=== PATIENT | male | born 1940 | race Caucasian/White ===

== ENCOUNTER → 2020-01-01 12:58 | Outpatient (BNVA) | payer OTHER, MEDICARE, SELFPAY | PROVIDERS: Family Provider Internal Medicine; PCP Internal Medicine; Visit Provider Specialist | DX: G25.0 Essential tremor (principal); G24.3 Spasmodic torticollis; Z87.891 Personal history of nicotine dependence | CPT/HCPCS: 99213 ==

== ENCOUNTER 2020-01-17 15:38 | Outpatient (CLI) | payer MEDICARE, SELFPAY ==
--- NOTE | 2020-01-17 16:30 | USCV_ITS ---
Coy Monique Age: 79 Gender: M : 1940 Exam Date: 01/17/2020 16:17 Ordering Phys: Dakota Carbajal MD ([email or web address]) Technologist: Colleen Rivera [place]am [place] [facility] [place]: SOB COPD BP: / HR: 90 Rhythm: Sinus Technical Quality: Adequate MEASUREMENTS (Male / Female) Normal Values 2D ECHO LV Diastolic Diameter PLAX 3.8 cm 4.2 - 5.9 / 3.9 - 5.3 cm LV Systolic Diameter PLAX 2.7 cm LV Chamber Size 2.9 cm IVS Diastolic Thickness 0.9 cm 0.6 - 1.0 / 0.6 - 0.9 cm IVS Systolic Thickness 1.3 cm LVPW Diastolic Thickness 1.5 cm 0.6 - 1.0 / 0.6 - 0.9 cm LVPW Systolic Thickness 1.4 cm RV Chamber Size 3.3 cm LVOT Diameter 2.1 cm LV Ejection Fraction 2D Teich 54.6 % LV Ejection Fraction MOD 2C 34.6 % LV Ejection Fraction 2C AL 36.1 % LA Diameter 2.8 cm LA Width 2.8 cm LA Height 3.3 cm RA Width 4.0 cm RA Height 3.9 cm Aorta at Sinotubular Diameter 3.4 cm M-MODE LV Diastolic Diameter MM 4.8 cm 4.2 - 5.9 / 3.9 - 5.3 cm LV Systolic Diameter MM 2.9 cm LV Ejection Fraction MM Teich 70.0 % IVS Diastolic Thickness MM 1.3 cm 0.6 - 1.0 / 0.6 - 0.9 cm IVS Systolic Thickness MM 1.5 cm LVPW Diastolic Thickness MM 0.8 cm 0.6 - 1.0 / 0.6 - 0.9 cm LVPW Systolic Thickness MM 1.7 cm RV Diastolic Diameter MM 2.1 cm Aortic Annulus Diameter 3.7 cm LA Ao Ratio MM 0.8 MV E Point Septal Separation 0.3 cm DOPPLER AV Peak Velocity 94.0 cm/s LVOT Peak Velocity 68.0 cm/s AV Area Cont Eq vti 3.1 cm squared AV Area Cont Eq pk 2.4 cm squared MV Area PHT 5.5 cm squared Mitral E to A Ratio 0.9 MV E' Velocity 9.0 cm/s Mitral E to MV E' Ratio 7.4 Mitral E to LV E' Lateral Ratio 7.8 Mitral E to LV E' Septal Ratio 7.0 TR Peak Velocity 199.3 cm/s TR Peak Gradient 15.9 mmHg TR Mean Velocity 158.9 cm/s TR Mean Gradient 10.8 mmHg TR Velocity Time Integral 60.9 cm Right Atrial Pressure 15.0 mmHg Pulmonary Artery Systolic Pressu 30.9 mmHg PV Peak Velocity 54.0 cm/s RV Acceleration Time 0.1 s RV Ejection Time 0.3 s RV AcT/ET 0.4 FINDINGS Left Ventricle Normal left ventricular cavity size. Normal left ventricular systolic function. No regional wall motion abnormalities. Left ventricular ejection fraction is estimated at 55 %. Grade I/IV diastolic dysfunction (abnormal relaxation filling pattern), normal to mildly elevated filling pressures. Right Ventricle The right ventricle is normal in size and function. Right Atrium The right atrium is normal in size. Left Atrium The left atrium is normal in size. Mitral Valve Structurally normal mitral valve without significant stenosis or prolapse. There is no mitral regurgitation. Aortic Valve Moderate aortic valve calcification. No aortic valve stenosis. No aortic valve regurgitation. Tricuspid Valve Structurally normal tricuspid valve without significant stenosis or regurgitation. Pulmonary artery systolic pressure is normal. Pulmonic Valve Structurally normal pulmonic valve without significant stenosis. There is no pulmonic regurgitation. Pericardium Normal pericardium without effusion. Aorta Normal ascending aorta dimension. CONCLUSIONS 1-Normal left ventricular cavity size. Normal left ventricular systolic function. No regional wall motion abnormalities. Left ventricular ejection fraction is estimated at 55 %. Grade I/IV diastolic dysfunction (abnormal relaxation filling pattern), normal to mildly elevated filling pressures. 2-There is no pericardial effusion. 3-Pulmonary artery systolic pressure is within normal limits. 4-No significant valve abnormalities. 5-Right atrial pressure is around 5 mm of mercury. 6-No significant change since the prior echocardiogram study of 04/18/2018.. Dakota Carbajal MD (Electronically Signed) Final Date: 17 Jan 2020 18:51 S
== END 2020-01-17 15:39 | disposition home or self-care (01) ==
LOC: RAD 15:44
PROVIDERS: PCP Internal Medicine; Visit Provider Internal Medicine Cardiovascular Disease
DX: R06.02 Shortness of breath (principal); J44.9 Chronic obstructive pulmonary disease, unspecified
CPT/HCPCS: 93306

== ENCOUNTER → 2020-06-04 13:44 | Outpatient (BNVA) | payer MEDICARE, SELFPAY | PROVIDERS: PCP Internal Medicine; Visit Provider Specialist | DX: Z11.59 Encounter for screening for other viral diseases (principal) | CPT/HCPCS: 87635 ==

== ENCOUNTER 2020-06-09 12:06 | Observation (INO) | payer MEDICARE, SELFPAY ==
[2020-06-08 10:39] VITALS: BMI 28.6
[2020-06-09] VITALS (14 sets, daily range): BP systolic 131–146; BP diastolic 72–80; PULSE 81–103; RESP 16–32; TEMP 36.3–36.8; O2SAT 94–99
--- NOTE | 2020-06-09 07:41 | ECG_ITS ---
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 Measurements Intervals [place] Rate: 83 P: 66 [place]: 156 QRS: 65 QRSD: 86 T: 50 QT: 351 QTc: 414 Interpretive Statements SINUS RHYTHM No previous ECG available for comparison Electronically Signed On 06-09-2020 16:34:45 CDT by Jolene Friedman M.D. [id number]
[2020-06-09] MEDS: sodium chloride 0.9% 1,000 ML 30 ML IV (07:50)
--- NOTE | 2020-06-09 08:00 | ANES.PREANE2 ---
Pre-Anesthetic Assessment Pre-Anesthetic Assessment: Height/Weight: Height 1.7 m Weight 83.007 kg Temp Pulse Resp BP Pulse Ox 97.9 F 91 18 146/79 97 06/09/20 07:42 06/09/20 07:42 06/09/20 07:42 06/09/20 07:42 06/09/20 07:42 Preop Diagnosis: COPD Proposed Procedure: Operation Date: 06/09/20 09:05 Proposed Procedures p Transtracheal Catheter, Scoop placement(Not Applicable) - Bao Argueta MD s Tracheostomy(Not Applicable) - Bao Argueta MD Familial anesthetic complications: No hx of anesthesia Was Beta Laverne taken within 24 hours: N/A Last intake: Intake Last Liquid Date 06/09/20 Last Liquid Time 04:30 Last Solid Date 06/08/20 Last Solid Time 23:00 Social: Social History: No alcohol and No tobacco Comment: former smoker Exam: Pre-Anes Outpt Exam: alert, oriented x 3, clear to auscultation bilaterally and regular rate & rhythm Airway: Cervical ROM: WNL MP: 3 Dentition: Other (missing) Pulmonary: Pulmonary: COPD CV/HEM: CV/HEM: CHF (taking lasix) and HTN Metabolic: Metabolic: Hyperlipidemia and Thyroid Neuropsych: Comments: tremor Anesthetic Plan: ASA status: 4 Anesthesia: MAC Risk of > 500 ml blood loss (7ml/kg in children): No Meds/Allergies Current Medications: Current Medications Generic Name Dose Route Start Last Admin Trade Name Freq PRN Reason Stop Dose Admin Sodium Chloride 1,000 mls @ 30 ml s/hr 06/09/20 07:15 06/09/20 07:50 Sodium Chloride 0.9% IV 06/10/20 07:14 30 mls/hr .Q24H GONZALEZ Administration PFSH Anesthesia PFSH: Medical History Lower extremity edema Shortness of breath Sinus tachycardia Family History Father Cancer Colon to lungs Social History Smoking and tobacco status: former smoker Data Anesthesia Cardiac Studies: No Data to Display
[2020-06-09 08:28] LABS: Basophils % 0.4 %; Eosinophils % 0.4 %; Hematocrit 49.6 % (42.0-52.0); Hemoglobin 14.7 g/dL (11.7-16.6); Lymphocytes # 1.3 10^3/uL (0.8-4.8); Lymphocytes % 13.2 %; Mean Corpuscular HGB Conc 29.6 g/dL (30.0-36.0); Mean Corpuscular Hemoglobin 28.9 pg (28.0-34.0); Mean Corpuscular Volume 97.6 fL (80-94); Mean Platelet Volume 11.1 fL (7.4-10.4); Monocytes # 0.8 10^3/uL (0.2-0.9); Monocytes % 7.5 %; Neutrophils # 7.75 10^3/uL (1.8-7.7); Nucleated Red Blood Cells % 0 %; Platelet Count 194 10^3/cmm (130-400); Red Blood Count 5.08 10^6/uL (4.1-5.3); Red Cell Distribution Width 13.8 % (12.1-15.1); White Blood Count 9.9 10^3/uL (4.0-10.0)
[2020-06-09 10:51] LABS: Alanine Aminotransferase 26 U/L (0-41); Albumin Level 4.3 g/dL (3.5-5.2); Alkaline Phosphatase 65 IU/L (40-130); Anion Gap 12.9 (5-19); Aspartate Amino Transferase 26 U/L (0-40); Blood Urea Nitrogen 18 mg/dL (8-23); Calcium 9.7 mg/dL (8.5-10.5); Carbon Dioxide 33 mmol/L (22-29); Chloride 101 mmol/L (98-107); Glucose 99 mg/dL (65-115); Osmolality Calculated 298 mOsm/kg (285-295); Potassium 3.9 mmol/L (3.5-5.1); Sodium 143 mmol/L (136-145); Total Bilirubin 0.4 mg/dL (0.15-1.2); Total Protein 7.3 g/dL (6.6-8.7)
--- NOTE | 2020-06-09 10:58 | W.PM.OPSUD ---
Surgery/Procedure H&P Update DATE OF PROCEDURE: June 09, 2020 DATE H&P PERFORMED: 05/25/20 H&P UPDATE INFORMATION: I have reviewed H&P completed within last 30 days, I have examined patient prior to procedure and No changes to prior documentation PREOP DIAGNOSIS: COPD with hypoxemia PLANNED PROCEDURE: Operation Date: 06/09/20 09:05 Proposed Procedures p Transtracheal Catheter, Scoop placement(Not Applicable) - Bao Argueta MD s Tracheostomy(Not Applicable) - Bao Argueta MD
--- NOTE | 2020-06-09 11:47 | XRR_ITS ---
PROCEDURE INFORMATION: Exam: XR Chest, 1 View Exam date and time: 06/09/2020 12:04 PM Age: 79 years old Clinical indication: Device placement; Tracheostomy placement or adjustment; Prior surgery; Surgery date: Post-operative (0-2 days); Surgery type: Tracheotomy with transtracheal oxygen catheter placement; Additional info: Post-op TECHNIQUE: Imaging protocol: XR of the chest Views: 1 view. COMPARISON: No relevant prior studies available. FINDINGS: Tubes, catheters and devices: A tracheostomy tube projects in satisfactory position. Lungs: There is mild fibrosis in the lungs but there is no airspace consolidation. Pleural space: Unremarkable. No pleural effusion. No pneumothorax. Heart/Mediastinum: The heart is not enlarged. The thoracic aorta is tortuous. Bones/joints: There are multiple old healed right rib fractures. XR/XR chest 1V portable [id number] IMPRESSION: 1. Satisfactory tracheostomy tube position. 2. No acute chest abnormality.
--- NOTE | 2020-06-09 11:53 | PM.OP ---
Operative Report Date of procedure: June 09, 2020 Pre-op Diagnosis: COPD with hypoxemia Post-op diagnosis: same Post-op Findings: Normal anterior neck exam Procedure Done: Tracheotomy with transtracheal oxygen catheter placement Implants: None Specimens removed/disposition: None Pathology: none sent Surgeon: Bao Argueta Hot Metal Mixer Operator Helper: Walt Bryant Anesthesia: MAC Estimated blood loss (mL): 10 IV fluids (mL): 800 Complications: None Findings: Normal anterior neck exam Condition: stable Disposition: PACU Brief History: 79 yo wm with a h/o COPD with hypoxemia who desires tracheotomy with transtracheal oxygen catheter placement. Procedure: The patient was identified the preoperative holding area and was taken to the operating where he was placed on the operating table in the supine position. The anatomical landmarks of the trachea were marked out on the anterior neck as was the incision, and the area of the incision was injected with local anesthesia. The patient was then prepped and draped in the usual sterile fashion, and the incision was made with electrocautery on cut mode. At this point electrocautery was used to perform a subcutaneous lipectomy and the strap muscles were identified. The strap muscles were then divided in the avascular midline off of the trachea and the trachea was exposed. At this point 2 cc of 2% plain lidocaine was injected into the trachea itself, and a horizontal incision was made between the first and second tracheal rings. The tracheal punch was used to remove a circular piece of cartilage from the anterior second tracheal ring. At this point the tracheal stent was placed into the trachea and was secured in place with a neck strap and 0 Prolene sutures. At this point the procedure was terminated and control of the patient was returned to anesthesia where he underwent an uneventful reversal of sedation was taken to the recovery room in stable condition. There were no operative or anesthetic complications.
--- NOTE | 2020-06-09 11:55 | SUR.PHASEI ---
1151 PATIENT TO PACU FROM OR. RR EVEN AND UNLABORED. TRACH IN PLACE, SPO2 99% ON SIMPLE MASK AT 8L. PATIENT DENIES PAIN.
[2020-06-09] MEDS: lidocaine 2% INJ 20 mL INJECTION (11:56)
--- NOTE | 2020-06-09 11:56 | SUR.PHASEI ---
1156 RECOVERING PATIENT AT A LEVEL 2 DUE TO AIRWAY CONCERNS FROM TRACH PLACEMENT.
--- NOTE | 2020-06-09 12:20 | PM.PACU ---
PACU note Post-Anesthesia Exam: awake and vital signs stable Disposition: admitted
--- NOTE | 2020-06-09 12:52 | SUR.PHASEI ---
1223 PATIENT TO MED SURG. DENIES PAIN. TOLERATING ICE CHIPS. PATIENT AMBULATORY FROM [facility] TO BED WHEN ARRIVING TO MED SURG.
[2020-06-09] MEDS: levalbuterol 0.63 mg/3 mL Neb INHALATION ×2 (13:53→20:28)
[2020-06-09] MEDS: HYDROcodone-acetaminophen 5-325 mg Tablet 2 TAB PO (15:56)
[2020-06-09] MEDS: CLONazepam 0.5 mg Tablet PO ×2 (15:57→21:11)
[2020-06-09] MEDS: gabapentin 300 mg Capsule PO ×2 (15:57→21:11)
[2020-06-09] MEDS: famotidine 20 mg/2 mL INJ IVP (17:08)
[2020-06-09] MEDS: lactated ringers 1,000 ML 100 ML IV (17:08)
[2020-06-09] MEDS: doxycycline 100 mg Tablet PO (17:08)
--- NOTE | 2020-06-09 17:36 | P.PN_ITS ---
Subjective Subjective: Interval history: 79 yo wm who is night of surgery s/p Minitracheotomy/Transtracheal oxygen catheter placement who reports that he is doing well. He is eating well, and has no other c/o. He reports mild pain in the area as well as mild bloody discharge, but has had no other c/o. Vitals/I&O/Wt Last Vital Signs Temp 98.2 F 06/09/20 15:34 Pulse 88 06/09/20 15:34 Resp 18 06/09/20 15:34 BP 131/72 06/09/20 15:34 Pulse Ox 94 06/09/20 16:18 06/09/20 06/09/20 06/09/20 06:59 14:59 22:59 Intake Total 50 / 50 Output Total Balance 40 / 40 Weight last 48 hrs Weight 83.007 kg Weight 83.007 kg Physical Exam HENMT: COMMON NORMALS: normocephalic, hearing grossly normal bilaterally, ext ernal ears normal and Normal external nose present HEAD & SCALP: normocep halic FACE & SINUS: normal facial exam NOSE: Normal external nose present EXTERNAL EAR: Yes external ears normal Eye: COMMON NORMALS: conjunctivae normal GENERAL EYE: appearance normal, both eyes and all related structures CONJUNCTIVA: Yes conjunctivae normal Neck/C-Spine: COMMON NORMALS: full ROM, no lymphadenopathy and supple GENERAL: Yes normal visual inspection OTHER: The trach site is clean and without erythema or induration. There is a scant bloody discharge present, but no active bleeding. Data : 06/09/20 07:49 06/09/20 07:49 A&P Additional A&P Information Impression: 79 yo wm who is night of surgery s/p minitrachetomy with transtracheal oxygen catheter placement doing well from this standpoint Plan: The patient is to continue NC Oxygen tonight. I will change to the 11cm SCOOP catheter in the morning. The patient will be ready for d/c after the oxygen catheter change in the morning. O/W, the patient is to continue his current care as outlined in his transfer orders. Attestations Medical Necessity Statement*: The patient requires overnight observation of his airway. Coding Level of Care Code Acute Round Boner for Yossi Perez
[2020-06-09] MEDS: ipratropium 0.5 mg/2.5 mL Neb INHALATION (20:28)
[2020-06-10 01:17] VITALS: BP 135/73; PULSE 87; RESP 17; TEMP 36.4; O2SAT 96
[2020-06-10] MEDS: lactated ringers 1,000 ML 100 ML IV (03:22)
[2020-06-10] MEDS: famotidine 20 mg/2 mL INJ IVP (03:23)
--- NOTE | 2020-06-10 05:03 | PM.PN ---
Subjective Subjective: Interval history: 79 yo wm who is POD #1 s/p minitracheotomy/transtracheal oxygen catheter placement. The patient reports that he is doing well. He denies any significant pain, and is o/w without c/o. He is using his NC 02. Vitals/I&O/Wt Last Vital Signs Temp 97.6 F 06/10/20 01:17 Pulse 87 06/10/20 01:17 Resp 17 06/10/20 01:17 BP 135/73 06/10/20 01:17 Pulse Ox 96 06/10/20 01:17 06/09/20 06/09/20 06/10/20 14:59 22:59 06:59 Intake Total 50 / 50 240 / 290 1000 / 1290 Output Total Balance 40 / 40 240 / 280 1000 / 1280 Weight last 48 hrs Weight 83.007 kg Weight 83.007 kg Physical Exam Const: COMMON NORMALS: no acute distress and patient oriented x3 GENERAL APPEARANCE: cooperative ORIENTATION/CONSCIOUSNESS: Yes awake HENMT: COMMON NORMALS: normocephalic, hearing grossly normal bilaterally and Normal external nose present HEAD & SCALP: normocephalic NOSE: Normal external nose present Eye: COMMON NORMALS: EOMs intact bilaterally and conjunctivae normal GENERAL EYE: appearance normal, both eyes and all related structures CONJUNCTIVA: Yes conjunctivae normal Neck/C-Spine: GENERAL: Yes normal visual inspection, Yes trachea midline and Yes other (The trach site is well healed without erythema. There is a scan bloody d/c) Chest: COMMONS NORMALS: normal inspection of the chest Resp: COMMON NORMALS: normal respiratory effort Cardio: COMMON NORMALS: regular rate, regular rhythm and No murmurs present (Cardio) RATE: regular rate RHYTHM: regular rhythm GI: COMMON NORMALS: Normal to inspection, nondistended, normoactive bowel sounds present Extremity: COMMON NORMALS: normal to inspection Neuro: COMMON NORMALS: patient oriented x3 and CN's II-XII intact bilaterally Skin: COMMON NORMALS: no rashes or lesions noted GENERAL SKIN EXAM: no rashes or lesions noted Data : 06/09/20 07:49 06/09/20 07:49 A&P Additional A&P Information Impression: 79 yo wm who is POD #1 s/p minitracheotomy/transtracheal oxygen catheter placement doing well Plan: The tracheal stent was removed and was replaced with an 11cm transtracheal oxygen catheter; the patient was placed on 2liters/minute oxygen via the TTO catheter with 93% saturation by pulse oximetry; we will obtain a PA/LAT CXR this morning to confirm placement of the catheter; once this has been done, the patient will be discharged to home; he was instructed and will be given instruction materials on TTO catheter care. Attestations Medical Necessity Statement*: The patient required overnight observation of his airway Coding Level of Care Code Acute [employer] for Yossi Perez
[2020-06-10 05:04] VITALS: BP 120/72; PULSE 77; RESP 16; TEMP 36.6; O2SAT 95
--- NOTE | 2020-06-10 05:11 | XRR_ITS ---
PROCEDURE INFORMATION: Exam: XR Chest, 2 Views Exam date and time: 06/10/2020 5:50 AM Age: 79 years old Clinical indication: Device placement; Other: For transtracheal oxygen catheter placement TECHNIQUE: Imaging protocol: XR of the chest Views: 2 views. COMPARISON: CR XR chest 1V portable [id number] 06/09/2020 12:03 PM FINDINGS: Tubes, catheters and devices: A tracheostomy tube is again seen and projects in satisfactory position. Lungs: The lungs are overinflated consistent with COPD. Scattered pulmonary fibrosis is present and stable. No pneumonia is seen. Pleural space: Unremarkable. No pleural effusion. No pneumothorax. Heart/Mediastinum: The heart is not enlarged. There is tortuosity and calcification of the thoracic aorta. Bones/joints: Unremarkable. XR/XR chest 2V* [id number] IMPRESSION: 1. COPD with scattered pulmonary fibrosis. 2. No acute abnormalities are seen.
[2020-06-10] MEDS: CLONazepam 0.5 mg Tablet PO (06:18)
[2020-06-10 06:57] LABS: Blood Urea Nitrogen 15 mg/dL (8-23)
[2020-06-10] MEDS: levothyroxine 50 mcg Tablet PO (08:06)
[2020-06-10] MEDS: roflumilast 500 mcg Tablet 250 MCG PO (08:06)
[2020-06-10] MEDS: doxycycline 100 mg Tablet PO (08:07)
[2020-06-10] MEDS: atorvastatin 40 mg Tablet 20 MG PO (08:07)
[2020-06-10] MEDS: gabapentin 300 mg Capsule PO (08:07)
[2020-06-10] MEDS: ascorbic acid 500 mg Tablet PO (08:07)
[2020-06-10] MEDS: predniSONE 5 mg Tablet 7.5 MG PO (08:08)
[2020-06-10] MEDS: losartan 50 mg Tablet 25 MG PO (08:08)
[2020-06-10 08:10] VITALS: BP 109/65; PULSE 82; RESP 18; TEMP 36.6; O2SAT 93
--- NOTE | 2020-06-10 09:00 | PC.RESP ---
PULMONARY REHAB INFORMATION SENT TO PATIENT.
[2020-06-10] MEDS: levalbuterol 0.63 mg/3 mL Neb INHALATION (09:18)
[2020-06-10] MEDS: ipratropium 0.5 mg/2.5 mL Neb INHALATION (09:18)
[2020-06-10 09:32] VITALS: PULSE 74; RESP 18; O2SAT 93
--- NOTE | 2020-06-10 10:26 | ANE.PACU2 ---
Inpatient post-anesthesia follow up: Airway intact: Yes Vital signs: Temperature 97.9 F Pulse Rate 74 Respiratory Rate 18 Blood Pressure 109/65 Pulse Oximetry 93 Oxygen Delivery Me thod Transtracheal Cath eter Oxygen Flow Rate 2 Fraction of Inspir ed Oxygen Hydration adequate: Yes Nausea and vomiting: No Pain level: 1 Mental status: Baseline
--- NOTE | 2020-06-10 11:30 | P.PN_ITS ---
Subjective Subjective: Interval history: 79 yo wm who is POD #1 s/p TTO catheter placement. The patient reports that he is doing well. Vitals/I&O/Wt Last Vital Signs Temp 97.9 F 06/10/20 08:10 Pulse 74 06/10/20 09:32 Resp 18 06/10/20 09:32 BP 109/65 06/10/20 08:10 Pulse Ox 93 06/10/20 09:32 06/09/20 06/10/20 06/10/20 22:59 06:59 14:59 Intake Total 240 / 290 1000 / 1290 360 / 360 Balance 240 / 280 1000 / 1280 360 / 360 Physical Exam HENMT: COMMON NORMALS: normocephalic HEAD & SCALP: normocephalic Eye: COMMON NORMALS: EOMs intact bilaterally and conjunctivae normal CONJUNCTIVA: Yes conjunctivae normal Neck/C-Spine: COMMON NORMALS: no lymphadenopathy and supple GENERAL: Yes other (The TTO catheter is in place. The wound is clean.) Lymph: LYMPHATIC: no lymphadenopathy noted Chest: COMMONS NORMALS: normal inspection of the chest Resp: COMMON NORMALS: normal respiratory effort and No use of accessory muscles Cardio: COMMON NORMALS: regular rate, regular rhythm and No murmurs present (Cardio) RATE: regular rate RHYTHM: regular rhythm : COMMON NORMALS: Yes normal external exam Extremity: COMMON NORMALS: normal to inspection Neuro: COMMON NORMALS: CN's II-XII intact bilaterally Skin: COMMON NORMALS: no rashes or lesions noted GENERAL SKIN EXAM: no rashes or lesions noted Data : 06/09/20 07:49 06/10/20 06:25 Attestation for Other Data: I personally reviewed and interpreted the following: (PA/LAT CXR: tracheostomy tube in proper position) A&P Additional A&P Information Impression: POD #1 s/p TTO catheter placement Plan: D/C to home; the patient is to begin cleaning protocol; supplies given to the patient; Doxycycline 100mg po BID x 10 days; [place] (5/325) tabs: take 1-2 tabs po Q5 hours prn pain, #25, NR; f/u in Dr. Argueta's office in one week and as needed - the patient is to bring supplies with him when he returns for f/u evaluation. Attestations Medical Necessity Statement*: The patient required overnight observation of his airway. Coding Level of Care Code Acute Rn Clinical Quality for Yossi Perez
[2020-06-10 11:54] VITALS: BP 137/79; PULSE 94; RESP 18; TEMP 36.9; O2SAT 92
[2020-06-10 14:22] VITALS: BP 137/79; PULSE 94; RESP 18; TEMP 36.9; O2SAT 92
== END 2020-06-10 14:24 | disposition home or self-care (01) ==
LOC: MEDSURG 12:07
PROVIDERS: Anesthesiology; Admitting Provider Specialist; PCP Family Medicine; Visit Provider Specialist
PROC: (CPT 31730; principal; 2020-06-09 09:05)
DX: J44.9 Chronic obstructive pulmonary disease, unspecified (principal); R09.02 Hypoxemia
CPT/HCPCS: 31600; 12345; 36415; 71045; 71046; 80053; 82565; 84520; 85025; 93005; 94640; 94664; 96360; 96361; 96375; G0378; J0690; J2250; J3490; J7030; J7512; J7614; J7644

== ENCOUNTER → 2021-03-02 13:33 | Outpatient (BNVA) | payer OTHER, MEDICARE, SELFPAY | PROVIDERS: PCP Family Medicine; Visit Provider Specialist | DX: G25.0 Essential tremor (principal); G24.3 Spasmodic torticollis; J44.9 Chronic obstructive pulmonary disease, unspecified; Z87.891 Personal history of nicotine dependence | CPT/HCPCS: 99213; 99214 ==

== ENCOUNTER → 2021-11-01 13:36 | Outpatient (BNVA) | payer OTHER, SELFPAY | PROVIDERS: PCP Family Medicine; Visit Provider Specialist | DX: G24.3 Spasmodic torticollis (principal); Z87.891 Personal history of nicotine dependence | CPT/HCPCS: 99213 ==

== ENCOUNTER 2022-03-11 13:06 | Outpatient (CLI) | payer OTHER, SELFPAY ==
--- NOTE | 2022-03-11 13:35 | ECG_ITS ---
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 Measurements Intervals [place] Rate: 98 P: 75 [place]: 151 QRS: 76 QRSD: 86 T: 68 QT: 369 QTc: 473 Interpretive Statements SINUS RHYTHM NONSPECIFIC ST & T-WAVE ABNORMALITY Compared to ECG 06/09/2020 08:01:34 T-wave abnormality now present Electronically Signed On 03-11-2022 20:32:35 CDT by Joey Pillai M.D. [id number]
--- NOTE | 2022-03-11 13:37 | XR_ITS ---
WS: [id number] XR chest 2V* [id number] REASON FOR EXAM: HYPOXEMIA FINDINGS: The chest is relatively unchanged compared to 06/10/2020. Significant tortuosity and ectasia of the thoracic aorta. Calcified granulomatous disease in both hemithoraces. Areas of coarse reticular interstitial density with large and small areas of lucency. Flattening of the hemidiaphragms. Expansion of the anterior clear space. Moderate changes of degenerative spondylosis in the thoracic spine. XR/XR chest 2V* [id number] IMPRESSION: Stable chest with no acute abnormality. Findings of obstructive lung disease with central lobar emphysema and bullous d isease.
== END 2022-03-11 13:07 | disposition home or self-care (01) ==
LOC: RT 13:11
PROVIDERS: PCP Family Medicine; Visit Provider Specialist
DX: R09.02 Hypoxemia (principal); J43.9 Emphysema, unspecified
CPT/HCPCS: 71046; 80048; 85025; 93005

== ENCOUNTER 2022-03-23 11:17 | Outpatient (CLI) | payer MEDICARE, SELFPAY ==
--- NOTE | 2022-03-23 11:31 | XR_ITS ---
WS: [id number] Chest 2 views, 03/23/2022 Clinical Data: CHRONIC OBSTRUCTIVE PULMONARY DZ,UNSPECIFIED Comparison: PA and lateral chest, 03/11/2022. Findings: No nodules, masses or effusions are seen. The heart is normal. The pulmonary vascularity is not increased. No pneumonia or pneumothorax is seen. The diaphragms are flattened. There is probable upper lobe bullous emphysema. The aortic arch and descending thoracic aorta show calcification and t ortuosity. XR/XR chest 2V* [id number] Impression: 1. Hyperinflation with probable chronic obstructive pulmonary disease. 2. Atherosclerosis.
== END 2022-03-23 11:18 | disposition home or self-care (01) ==
PROVIDERS: PCP Family Medicine; Visit Provider Specialist
DX: J44.9 Chronic obstructive pulmonary disease, unspecified (principal); I70.90 Unspecified atherosclerosis
CPT/HCPCS: 71046

== ENCOUNTER → 2022-04-13 14:52 | Outpatient (BNVA) | payer MEDICARE, SELFPAY | PROVIDERS: PCP Family Medicine; Visit Provider Nurse Practitioner Family | DX: N40.1 Benign prostatic hyperplasia with lower urinary tract symptoms (principal); R33.9 Retention of urine, unspecified | CPT/HCPCS: 51741; 51798; 81003; 99203 ==

== ENCOUNTER → 2022-04-14 12:51 | Outpatient (BNVA) | payer OTHER, SELFPAY | PROVIDERS: PCP Family Medicine; Visit Provider Internal Medicine Cardiovascular Disease | DX: I10 Essential (primary) hypertension (principal); G25.0 Essential tremor; G24.3 Spasmodic torticollis; J44.9 Chronic obstructive pulmonary disease, unspecified; R60.0 Localized edema; Z87.891 Personal history of nicotine dependence | CPT/HCPCS: 99213; 99214 ==

== ENCOUNTER → 2022-06-20 13:48 | Outpatient (BNVA) | payer OTHER, SELFPAY | PROVIDERS: PCP Family Medicine; Visit Provider Urology | DX: N40.1 Benign prostatic hyperplasia with lower urinary tract symptoms (principal); R35.1 Nocturia | CPT/HCPCS: 51741; 51798; 81003; 99213 ==

== ENCOUNTER → 2022-10-31 13:05 | Outpatient (BNVA) | payer OTHER, SELFPAY | PROVIDERS: PCP Family Medicine; Visit Provider Specialist | DX: G25.0 Essential tremor (principal); G62.9 Polyneuropathy, unspecified; G24.3 Spasmodic torticollis | CPT/HCPCS: 36415; 82607; 82746; 99214 ==

== ENCOUNTER → 2022-12-19 13:36 | Outpatient (BNVA) | payer OTHER, SELFPAY | PROVIDERS: PCP Family Medicine; Visit Provider Urology | DX: N40.1 Benign prostatic hyperplasia with lower urinary tract symptoms (principal); N13.8 Other obstructive and reflux uropathy; R35.1 Nocturia | CPT/HCPCS: 51741; 51798; 81003; 99213 ==

== ENCOUNTER 2022-12-20 10:57 | Emergency (ER) | payer OTHER, SELFPAY ==
[2022-12-20 11:15] VITALS: BP 151/75; PULSE 92; RESP 18; TEMP 36.6; O2SAT 91; BMI 25.2
--- NOTE | 2022-12-20 11:25 | W.ED.GENADLT ---
HPI - General Adult General: Chief complaint: General Medical Stated complaint: Trach fell out Time Seen by Provider: 12/20/22 11:22 Source: patient Mode of arrival: ambulatory Limitations: no limitations History of Present Illness: Patient is an 82-year-old male with a history of tracheostomy with transtracheal oxygen catheter placement by Dr. Argueta approximately 3 years ago here stating he cannot get his catheter reinserted. Patient states he removes catheter periodically to clean. He states he has never had any issues with re-insertion before. Patient states it was placed secondary to COPD for improved oxygen delivery. Onset (ago): hour(s) Location: neck Relieving factors: none Exacerbating factors: none Associated symptoms: Reports no associated symptoms and dyspnea (chronic-at baseline); Deny chest pain, headache(s) or malaise Treatments prior to arrival: none Review of Systems Const: Denies: fever(s), chills, body aches, fatigue or malaise Card: Denies: chest pain Resp: Reports: dyspnea (chronic-at baseline); Denies: wheezing, hemoptysis or chest congestion Musc: Denies: neck pain Neuro: Denies: headache(s) or dizziness PFSH ED PFSH: Medical History History of nonmelanoma skin cancer HTN (hypertension) with goal to be determined Hyperlipidemia Hypothyroidism Lower extremity edema Nocturia MINE (obstructive sleep apnea) Parkinson disease Shortness of breath Sinus tachycardia Surgical History History of tracheostomy Family History Father , at age 80's Cancer Colon to lungs Mother Hypertension CHF (congestive heart failure) Social History Smoking and tobacco status: former smoker Alcohol intake: current Alcohol intake frequency: holidays/special occasions only Substance/Drug Use: never Household members: family Marital status: Current occupational status: retired Physical Exam Const: COMMON NORMALS: no acute distress, average body habitus, no limitations, alert and well nourished GENERAL APPEARANCE: cooperative ORIENTATION/CONSCIOUSNESS: Yes awake, Yes oriented to person, Yes oriented to place and Yes oriented to time Neck/C-Spine: GENERAL: Yes trachea midline and No tracheal deviation OTHER: tracheotomy site appears clean and non-infected Resp: COMMON NORMALS: normal respiratory effort and clear to auscultation bilaterally AUSCULTATION: clear to auscultation bilaterally Cardio: COMMON NORMALS: regular rate and regular rhythm RATE: regular rate RHYTHM: regular rhythm Neuro: SENSORIUM/ORIENTATION: Yes alert, Yes oriented to person, Yes oriented to place and Yes oriented to time Course Vital Signs: Vital signs: Vital Signs Temperature 97.8 F 12/20/22 11:15 Pulse Rate 92 12/20/22 11:15 Respiratory Rate 18 12/20/22 11:15 Blood Pressure 151/75 12/20/22 11:15 Pulse Oximetry 91 12/20/22 11:15 Oxygen Delivery Me thod Room Air 12/20/22 11:15 MDM - General Adult Medical Decision Making Respiratory was able to come evaluate patient and re-insert transtracheal catheter without issue. They state they will place consult/service note. Return to ED precautions given. Discharge Plan Discharge Patient Disposition: Home Clinical Impression: Tracheostomy care Condition: Stable Prescriptions: No Action potassium chloride 20 mEq tablet extended release 20 meq PO DAILY PRN (Reason: with lasix) Qty: 90 3RF benzonatate 100 mg capsule 100 mg PO DAILY PRN (Reason: Cough) doxycycline hyclate 100 mg capsule 100 mg PO DAILY PRN (Reason: Congestion) prednisone 10 mg tablet 7.5 mg PO DAILY Yupelri 175 mcg/3 mL solution for nebulization 175 mcg INHALATION DAILY Daliresp 250 mcg tablet 250 mcg PO DAILY ascorbic acid (vitamin C) 500 mg capsule 500 mg PO DAILY levothyroxine 100 mcg capsule 50 mcg PO DAILY fluticasone propionate [Flonase Allergy Relief] 50 mcg/actuation spray,suspension 1 spray INTRANASAL DAILY cholecalciferol (vitamin D3) 50 mcg (2,000 unit) capsule 50 mcg PO DAILY zinc gluconate 50 mg tablet 50 mg PO DAILY lovastatin 40 mg tablet 20 mg PO DAILY montelukast 10 mg tablet 10 mg PO DAILY budesonide 0.5 mg/2 mL suspension for nebulization 0.25 mg inhalation BID tamsulosin 0.4 mg capsule 0.4 mg PO DAILY formoterol fumarate 20 mcg/2 mL solution for nebulization 2 ml inhalation Q12H metoprolol succinate 25 mg tablet extended release 24 hr 12.5 mg PO DAILY Qty: 45 3RF finasteride 5 mg tablet 5 mg PO DAILY Qty: 90 3RF imiquimod 5 % cream in packet 1 applic topical ONCE PRN (Reason: skin cancer) Qty: 24 1RF Rx Instructions: apply thin film to Monday-Monday (off weekends) for 6 weeks. silodosin 8 mg capsule 8 mg PO DAILY Qty: 90 3RF Rx Instructions: must administer with a meal/food gabapentin 400 mg capsule 400 mg PO TID 90 Days Qty: 270 0RF clonazepam 1 mg tablet 1 mg PO Q8H Qty: 90 5RF [place] 5-325 mg tablet 1 tab PO Q6H PRN (Reason: pain) Qty: 25 0RF furosemide 40 mg tablet 20 mg PO DAILY PRN (Reason: edema) Discharge Orders: Discharge ED (Routine); Ordered 12/20/22 Ordered By: Melissa Perez Referrals: Dorie Still MD [Primary Care Provider] - Coding Level of Care Code ED Contract Accountant for Yossi Perez
== END 2022-12-20 12:19 | disposition home or self-care (01) ==
PROVIDERS: Emergency Provider Physician Assistant; PCP Family Medicine
DX: Z43.0 Encounter for attention to tracheostomy (principal); Z87.891 Personal history of nicotine dependence; I10 Essential (primary) hypertension; E78.5 Hyperlipidemia, unspecified; G20 Parkinson's disease
CPT/HCPCS: 99282

== ENCOUNTER → 2023-02-14 15:13 | Outpatient (BNVA) | payer OTHER, SELFPAY | PROVIDERS: PCP Family Medicine; Visit Provider Dermatology | DX: L57.0 Actinic keratosis (principal); L82.1 Other seborrheic keratosis; L81.4 Other melanin hyperpigmentation; L57.8 Other skin changes due to chronic exposure to nonionizing radiation; Z85.828 Personal history of other malignant neoplasm of skin | CPT/HCPCS: 17000; 17003; 99213 ==

== ENCOUNTER 2023-02-17 08:33 | Emergency (ER) | payer OTHER, SELFPAY ==
--- NOTE | 2023-02-17 08:41 | XR_ITS ---
WS: [id number] PORTABLE CHEST HISTORY: dyspnea/cough COMPARISON: 03/23/2022 Hyperinflated lungs. Chronic emphysema. No mass or nodule identified. No pneumonia. No pleural effusi on or pneumothorax. Cardiac size: Normal. Mediastinum/Aorta: Mild atherosclerosis aorta. Ectatic aorta. Mild osteopenia. XR/XR chest 1V portable [id number] IMPRESSION: Chronic emphysema. No acute findings identified.
[2023-02-17 08:43] VITALS: BP 116/65; PULSE 70; RESP 18; TEMP 36.6; O2SAT 93; BMI 30.5
--- NOTE | 2023-02-17 09:03 | ECG_ITS ---
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 Measurements Intervals [place] Rate: 62 P: -33 [place]: 172 QRS: -18 QRSD: 88 T: -6 QT: 396 QTc: 403 Interpretive Statements SINUS RHYTHM MODERATE VOLTAGE CRITERIA FOR LVH, CONSIDER NORMAL VARIANT [MEETS CRITERIA IN ONE OF: R(aVL), S(V1), R(V5), R(V5/V6)+S(V1)] Compared to ECG 03/11/2022 13:25:34 T-wave abnormality no longer present Electronically Signed On 02-17-2023 15:48:59 CDT by Joey Pillai M.D. [id number]
--- NOTE | 2023-02-17 09:09 | XR_ITS ---
WS: [id number] Exam: XR soft tissue neck [id number] Date/Time of Exam: 02/17/2023 9:12 AM Reason For Exam: trachea There appears to be some widening of the prevertebral soft tissues of the neck from C4 to C6. The air way is patent as visualized. Degenerative changes of the visualized cervical spine. Recommendations: CT of the neck might be considered for more detailed evaluation if thought to be cli nically warranted. XR/XR soft tissue neck [id number] IMPRESSION: 1. Widening of the prevertebral soft tissues of the neck from approximately the C4-C6 level. This might be secondary to inflammatory process, lymphadenopathy or neck mass. 2. The airway appears to be patent.
[2023-02-17 09:15] LABS: Basophils # 0.1 10^3/uL (0.0-0.1); Basophils % 0.9 %; Eosinophils # 0.2 10^3/uL (0.0-0.8); Eosinophils % 2.8 %; Hematocrit 38.7 % (42.0-52.0); Hemoglobin 11.7 g/dL (11.7-16.6); Lymphocytes # 1.9 10^3/uL (0.8-4.8); Lymphocytes % 28.9 %; Mean Corpuscular HGB Conc 30.2 g/dL (30.0-36.0); Mean Corpuscular Hemoglobin 29.8 pg (28.0-34.0); Mean Corpuscular Volume 98.5 fl (80-94); Mean Platelet Volume 10.4 fL (7.4-10.4); Monocytes # 0.7 10^3/uL (0.2-0.9); Monocytes % 10.9 %; Neutrophils # 3.68 10^3/uL (1.8-7.7); Neutrophils % 56.2 %; Nucleated Red Blood Cells % 0 %; Platelet Count 175 10^3/cmm (130-400); Red Blood Count 3.93 10^6/uL (4.1-5.3); Red Cell Distribution Width 13.8 % (12.1-15.1); White Blood Count 6.5 10^3/uL (4.0-10.0)
--- NOTE | 2023-02-17 09:29 | ED_ITS ---
HPI - General Adult General: Chief complaint: General Medical Stated complaint: trachea prolapse Time Seen by Provider: 02/17/23 08:40 Source: patient Mode of arrival: ambulatory History of Present Illness: 82-year-old male presents to the emergency room with complaints of unable to place a trach he ostomy tube. He has a small rather unique tracheostomy tube as an os in the neck that he passes the tube through and then hooks his oxygen up to. It is much much smaller than the typical tracheostomy tube and only offers a small soft tissue loss at the surface he changes them because evidently they have stopped making the particular appliance he uses and he only has 4 left. He was unable to get it to pass through the os this morning presented to the emergency room he is chronically on oxygen. He is on nasal cannula on arrival here. He denies any fever sweats chills or difficulty other than not being able to pass the tube through the os today. Onset (ago): minute(s) Location: neck Associated symptoms: Deny chest pain, cough, diaphoresis, decreased appetite, dyspnea, fevers/chills, headache(s), malaise, nausea, rash, palpitations, short of breath, syncope, vomiting or weakness Review of Systems Const: Denies: fever(s), chills, malaise or diaphoresis ENMT: Denies: throat pain, ear or mastoid pain, nasal discharge or nasal congestion Card: Denies: chest pain, palpitations or syncope Resp: Denies: dyspnea GI: Denies: abdominal pain, nausea or vomiting : Denies: flank pain, dysuria, urinary frequency or urinary urgency Skin/Breast: Denies: rash or pruritus Neuro: Denies: headache(s) PFSH ED PFSH: Medical History History of nonmelanoma skin cancer HTN (hypertension) with goal to be determined Hyperlipidemia Hypothyroidism Lower extremity edema Nocturia MINE (obstructive sleep apnea) Parkinson disease Shortness of breath Sinus tachycardia Surgical History History of tracheostomy Family History Father , at age 80's Cancer Colon to lungs Mother Hypertension CHF (congestive heart failure) Social History Smoking and tobacco status: former smoker Alcohol intake: current Alcohol intake frequency: holidays/special occasions only Substance/Drug Use: never Household members: family Marital status: Current occupational status: retired Physical Exam Const: COMMON NORMALS: no acute distress GENERAL APPEARANCE: cooperative and comfortable ORIENTATION/CONSCIOUSNESS: Yes awake, Yes oriented to person, Yes oriented to place and Yes oriented to time HENMT: COMMON NORMALS: normocephalic, atraumatic and hearing grossly normal bilaterally HEAD & SCALP: normocephalic and atraumatic Resp: COMMON NORMALS: normal respiratory effort, No retractions, No use of accessory muscles and clear to auscultation bilaterally AUSCULTATION: clear to auscultation bilaterally Cardio: COMMON NORMALS: regular rate, regular rhythm and No murmurs present (Cardio) RATE: regular rate RHYTHM: regular rhythm GI: COMMON NORMALS: Soft to palpation and No hepatosplenomegaly present AUSCULTATION: Yes normoactive bowel sounds PALPATION: Yes Soft to palpation, No Tenderness to palpation present (GI), No Guarding due to palpation present (GI) and Yes No hepatosplenomegaly present Extremity: COMMON NORMALS: normal to inspection, capillary refill normal, no clubbing, cyanosis or edema, no calf tenderness and no pedal edema Neuro: SENSORIUM/ORIENTATION: Yes oriented to person, Yes oriented to place and Yes oriented to time Skin: COMMON NORMALS: no rashes or lesions noted GENERAL SKIN EXAM: no ra shes or lesions noted Course Vital Signs: Vital signs: Vital Signs Temperature 97.8 F 02/17/23 08:43 Pulse Rate 92 02/17/23 09:50 Respiratory Rate 20 H 02/17/23 09:51 Blood Pressure 142/74 02/17/23 09:51 Pulse Oximetry 92 02/17/23 09:51 Oxygen Delivery Me thod Nasal Cannula 02/17/23 08:43 Oxygen Flow Rate 4 02/17/23 08:43 [facility] - General Adult Medical Decision Making Patient supplied a small tracheostomy appliance that he has been using for a long period of time scant amount of water-based lubrication applied and was able to replace it within his trachea soft tissue x-ray done. There is no air accumulation subcutaneously there is no obvious radiopaque aspect to the appliance what portion I can see appears to be within the trachea. He is exchanging air through it freely without difficulty there is no bleeding. Discharge patient home encouraged him to follow-up with Dr. Deleon. He may need to consider dilation of the os of this nearly microscopic tracheostomy to allow for easier replacement of the tubes. Patient reports they are not able to get new appliances he may have to have this reviewed advised in some fashion to allow for appropriate equipment. Medical Records I reviewed the patient's medical records. Lab Data I reviewed the patient's lab results. 02/17/23 09:02 02/17/23 09:02 Radiology Impressions Chest X-Ray 02/17/23 08:41 IMPRESSION: Chronic emphysema. No acute findings identified. Soft Tissue Neck X-Ray 02/17/23 09:09 IMPRESSION: 1. Widening of the prevertebral soft tissues of the neck from approximately the C4-C6 level. This might be secondary to inflammatory process, lymphadenopathy or neck mass. 2. The airway appears to be patent. Laboratory Results WBC 6.5 10^3/uL (4.0-10.0) 02/17/23 09:02 RBC 3.93 10^6/uL (4.1-5.3) L 02/17/23 09:02 Hgb 11.7 g/dL (11.7-16.6) 02/17/23 09:02 Hct 38.7 % (42.0-52.0) L 02/17/23 09:02 MCV 98.5 fl (80-94) H 02/17/23 09:02 MCH 29.8 pg (28.0-34.0) 02/17/23 09:02 MCHC 30.2 g/dL (30.0-36.0) 02/17/23 09:02 RDW 13.8 % (12.1-15.1) 02/17/23 09:02 Plt Count 175 10^3/cmm (130-400) 02/17/23 09:02 MPV 10.4 fL (7.4-10.4) 02/17/23 09:02 Neut % (Auto) 56.2 % 02/17/23 09:02 Lymph % (Auto) 28.9 % 02/17/23 09:02 [place] % (Auto) 10.9 % 02/17/23 09:02 Eos % (Auto) 2.8 % 02/17/23 09:02 Baso % (Auto) 0.9 % 02/17/23 09:02 Neut # (Auto) 3.68 10^3/uL (1.8-7.7) 02/17/23 09:02 Lymph # (Auto) 1.9 10^3/uL (0.8-4.8) 02/17/23 09:02 [place] # (Auto) 0.7 10^3/uL (0.2-0.9) 02/17/23 09:02 Eos # (Auto) 0.2 10^3/uL (0.0-0.8) 02/17/23 09:02 Baso # (Auto) 0.1 10^3/uL (0.0-0.1) 02/17/23 09:02 Nucleated RBC % (auto) 0 % 02/17/23 09:02 Nucleated RBCs # 0.0 /100WBC 02/17/23 09:02 Sodium 142 mmol/L (136-145) 02/17/23 09:02 Potassium 4.1 mmol/L (3.5-5.1) 02/17/23 09:02 Chloride 102 mmol/L (98-107) 02/17/23 09:02 Carbon Dioxide 34 mmol/L (22-29) H 02/17/23 09:02 Anion Gap 10.1 (5-19) 02/17/23 09:02 BUN 17 mg/dL (8-23) 02/17/23 09:02 Creatinine 0.7 mg/dL (0.7-1.2) 02/17/23 09:02 GFR Calculation Not Reportable 02/17/23 09:02 Glucose 82 mg/dL (65-115) 02/17/23 09:02 Calculated Osmolality 295 mOsm/kg (285-295) 02/17/23 09:02 Calcium 9.6 mg/dL (8.5-10.5) 02/17/23 09:02 Total Bilirubin 0.2 mg/dL (0.15-1.2) 02/17/23 09:02 AST 25 U/L (0-40) 02/17/23 09:02 ALT 18 U/L (0-41) 02/17/23 09:02 Alkaline Phosphatase 64 U/L (40-130) 02/17/23 09:02 Total Protein 7.9 g/dL (6.6-8.7) 02/17/23 09:02 Albumin 4.0 g/dL (3.5-5.2) 02/17/23 09:02 Globulin 3.9 g/dL (1.3-4.6) 02/17/23 09:02 Discharge Plan Discharge Patient Disposition: Home Clinical Impression: Tracheostomy care Condition: Stable Prescriptions: No Action potassium chloride 20 mEq tablet extended release 20 meq PO DAILY PRN (Reason: with lasix) Qty: 90 3RF benzonatate 100 mg capsule 100 mg PO DAILY PRN (Reason: Cough) doxycycline hyclate 100 mg capsule 100 mg PO DAILY PRN (Reason: Congestion) prednisone 10 mg tablet 7.5 mg PO DAILY Yupelri 175 mcg/3 mL solution for nebulization 175 mcg INHALATION DAILY Daliresp 250 mcg tablet 250 mcg PO DAILY ascorbic acid (vitamin C) 500 mg capsule 500 mg PO DAILY levothyroxine 100 mcg capsule 50 mcg PO DAILY fluticasone propionate [Flonase Allergy Relief] 50 mcg/actuation spray,suspension 1 spray INTRANASAL DAILY cholecalciferol (vitamin D3) 50 mcg (2,000 unit) capsule 50 mcg PO DAILY zinc gluconate 50 mg tablet 50 mg PO DAILY lovastatin 40 mg tablet 20 mg PO DAILY montelukast 10 mg tablet 10 mg PO DAILY budesonide 0.5 mg/2 mL suspension for nebulization 0.25 mg inhalation BID tamsulosin 0.4 mg capsule 0.4 mg PO DAILY formoterol fumarate 20 mcg/2 mL solution for nebulization 2 ml inhalation Q12H metoprolol succinate 25 mg tablet extended release 24 hr 12.5 mg PO DAILY Qty: 45 3RF finasteride 5 mg tablet 5 mg PO DAILY Qty: 90 3RF imiquimod 5 % cream in packet 1 applic topical ONCE PRN (Reason: skin cancer) Qty: 24 1RF Rx Instructions: apply thin film to Monday-Monday (off weekends) for 6 weeks. silodosin 8 mg capsule 8 mg PO DAILY Qty: 90 3RF Rx Instructions: must administer with a meal/food gabapentin 400 mg capsule 400 mg PO TID 90 Days Qty: 270 0RF clonazepam 1 mg tablet 1 mg PO Q8H Qty: 90 5RF [place] 5-325 mg tablet 1 tab PO Q6H PRN (Reason: pain) Qty: 25 0RF furosemide 40 mg tablet 20 mg PO DAILY PRN (Reason: edema) Discharge Orders: Discharge ED (Routine); Ordered 02/17/23 Ordered By: Jonny Love Referrals: Dorie Still MD [Primary Care Provider] - Discharge Diet: Usual diet Discharge Activity: Increase activity as tolerated Patient Instructions: Opioid Safety, Pain Management Activity Restrictions/Additional Instructions: You are seen today for difficulty with your tracheostomy tube we were able to replace the tube. Recommend he follow-up with Dr. Argueta sometime the next week to have him reevaluate. If you have any further problems return to the emergency room. Coding Level of Care Code ED Photograph Editor for Yossi Perez
[2023-02-17 09:36] LABS: Alanine Aminotransferase 18 U/L (0-41); Alkaline Phosphatase 64 U/L (40-130); Anion Gap 10.1 (5-19); Aspartate Amino Transferase 25 U/L (0-40); Blood Urea Nitrogen 17 mg/dL (8-23); Calcium 9.6 mg/dL (8.5-10.5); Carbon Dioxide 34 mmol/L (22-29); Chloride 102 mmol/L (98-107); Globulin 3.9 g/dL (1.3-4.6); Glucose 82 mg/dL (65-115); Osmolality Calculated 295 mOsm/kg (285-295); Potassium 4.1 mmol/L (3.5-5.1); Sodium 142 mmol/L (136-145); Total Bilirubin 0.2 mg/dL (0.15-1.2); Total Protein 7.9 g/dL (6.6-8.7)
[2023-02-17 09:50] VITALS: BP 142/74; PULSE 92; RESP 20; O2SAT 92
[2023-02-17 09:51] VITALS: BP 142/74; RESP 20; O2SAT 92
== END 2023-02-17 09:53 | disposition home or self-care (01) ==
PROVIDERS: Emergency Provider Family Medicine; PCP Family Medicine
DX: Z43.0 Encounter for attention to tracheostomy (principal); I10 Essential (primary) hypertension; E78.5 Hyperlipidemia, unspecified; G20 Parkinson's disease; Z87.891 Personal history of nicotine dependence
CPT/HCPCS: 36415; 70360; 71045; 80053; 85025; 93005; 99285

== ENCOUNTER → 2023-04-27 13:09 | Outpatient (BNVA) | payer MEDICARE, SELFPAY | PROVIDERS: PCP Family Medicine; Visit Provider Internal Medicine Cardiovascular Disease | DX: G62.9 Polyneuropathy, unspecified (principal); Z85.828 Personal history of other malignant neoplasm of skin; J44.9 Chronic obstructive pulmonary disease, unspecified; R00.0 Tachycardia, unspecified; R06.02 Shortness of breath; I10 Essential (primary) hypertension; G20 Parkinson's disease; Z87.891 Personal history of nicotine dependence | CPT/HCPCS: 99213 ==

== ENCOUNTER → 2023-05-03 14:27 | Outpatient (BNVA) | payer MEDICARE, SELFPAY | PROVIDERS: PCP Family Medicine; Visit Provider Specialist | DX: G25.0 Essential tremor; G24.3 Spasmodic torticollis | CPT/HCPCS: 99213 ==

== ENCOUNTER → 2024-02-15 14:06 | Outpatient (BNVA) | payer MEDICARE, SELFPAY | PROVIDERS: PCP Family Medicine; Visit Provider Nurse Practitioner Family | DX: L57.0 Actinic keratosis (principal); L82.1 Other seborrheic keratosis; D22.5 Melanocytic nevi of trunk | CPT/HCPCS: 17000; 99213 ==

== ENCOUNTER 2024-03-13 22:18 | Emergency (ER) | payer OTHER, SELFPAY ==
[2024-03-13 22:19] VITALS: BP 99/53; PULSE 102; RESP 18; TEMP 37; O2SAT 90; BMI 22.8
--- NOTE | 2024-03-13 22:26 | XRR_ITS ---
PROCEDURE INFORMATION: Exam: XR Chest Exam date and time: 03/13/2024 10:28 PM Age: 83 years old Clinical indication: Shortness of breath; Prior surgery; Surgery date: 6+ months; Surgery type: Trach; Additional info: Dyspnea TECHNIQUE: Imaging protocol: Radiologic exam of the chest. Views: 1 view. COMPARISON: CR XR chest 1V portable [id number] 02/17/2023 8:55 AM FINDINGS: Tubes, catheters and devices: Tracheostomy tube in place. Lungs: Chronic bibasilar scarring. No focal consolidations. Emphysema. Pleural spaces: No pleural effusion. No pneumothorax. Heart/Mediastinum: Unremarkable. No cardiomegaly. Bones/joints: Healed right rib fractures. XR/XR chest 1V portable [id number] IMPRESSION: Chronic bibasilar scarring. No focal consolidations. Emphysema.
[2024-03-13 22:39] VITALS: BP 92/52; PULSE 96; RESP 18; O2SAT 92
--- NOTE | 2024-03-13 22:44 | ED_ITS ---
HPI - SOB/Dyspnea 2 General: Chief Complaint: Shortness of Breath/Dyspnea Stated Complaint: sob/fever Time Seen by Provider: 03/13/24 22:22 History of Present Illness: HPI Narrative: Patient presents to the ER with complaints shortness of breath. Patient says he also had a fever today and his blood pressure was high. Patient took extra lisinopril for his blood pressure. Patient has a tracheostomy and has had for about 5 years. Patient said when today when home health came after the they left he was getting short of breath and running a fever. Thinks they may have gave him something. Review of Systems 2 General: Reports: 10 or more systems reviewed and unremarkable except in HPI and below PFSH ED 2 PFSH: Medical History History of nonmelanoma skin cancer Nocturia MINE (obstructive sleep apnea) Parkinson disease Hypothyroidism Hyperlipidemia HTN (hypertension) with goal to be determined Sinus tachycardia Shortness of breath Lower extremity edema Surgical History History of tracheostomy Family History Father , at age 80's Cancer Colon to lungs Mother Hypertension Congestive heart failure (CHF) Social History Smoking and tobacco/nicotine status: former use of tobacco/nicotine Alcohol intake: current Alcohol intake frequency: holidays/special occasions only Substance/Drug Use: never Household members: family Marital status: Current occupational status: retired Physical Exam 2 Const: COMMON NORMALS: no acute distress, average body habitus, patient oriented x3, no limitations, healthy appearing, alert and well nourished HENMT: COMMON NORMALS: normocephalic, atraumatic, hearing grossly normal bilaterally, external ears normal, Normal external nose present and moist oral mucous membranes HEAD & SCALP: normocephalic and atraumatic NOSE: Normal external nose present EXTERNAL EAR: Yes external ears normal Neck/C-Spine: COMMON NORMALS: no JVD Chest: COMMONS NORMALS: normal inspection of the chest and normal palpation of entire chest wall Resp: COMMON NORMALS: normal respiratory effort, No retractions, No use of accessory muscles and clear to auscultation bilaterally AUSCULTATION: clear to auscultation bilaterally Cardio: COMMON NORMALS: no JVD, regular rate, regular rhythm, S1 normal heart sound present, S2 normal heart sound present, No gallops present (Cardio), No clicks present (Cardio), No murmurs present (Cardio) and No rub (Cardio) R ATE: regular rate RHYTHM: regular rhythm HEART SOUNDS: S1 normal heart sound present and S2 normal heart sound present GI: COMMON NORMALS: Normal to inspection, nondistended, normoactive bowel sounds present, Soft to palpation, non-tender, No hepatosplenomegaly present and no masses PALPATION: Yes Soft to palpation and Yes No hepatosplenomegaly present Neuro: COMMON NORMALS: patient oriented x3 SENSORIUM/ORIENTATION: Yes alert Course 2 Vital Signs: Vital signs: Vital Signs Temperature 98.6 F 03/13/24 22:19 Pulse Rate 82 03/14/24 00:00 Respiratory Rate 16 03/14/24 00:00 Blood Pressure 96/54 03/14/24 00:00 Pulse Oximetry 95 03/14/24 00:00 Oxygen Delivery Me thod Room Air 03/14/24 00:00 Oxygen Flow Rate 6 03/13/24 22:39 MDM - SOB/Dyspnea Medical Decision Making Patient had lab work, chest x-ray and respiratory panel all of which was essentially negative except white blood cell count was elevated at 18 but patient takes 10 mg prednisone a day. And he is slightly anemic with a hemoglobin 10.3, otherwise benign. These results was discussed with the patient. Patient is ready go home. Medical Records I reviewed the patient's medical records. Lab Data I reviewed the patient's lab results. 03/13/24 22:39 03/13/24 22:39 Labs/Radiology: Radiology Impressions Chest X-Ray 03/13/24 22:26 IMPRESSION: Chronic bibasilar scarring. No focal consolidations. Emphysema. Laboratory Results WBC 18.07 10^3/uL (3.29-11.43) H 03/13/24 22:39 RBC 3.53 10^6/uL (3.85-5.65) L 03/13/24 22:39 Hgb 10.30 g/dL (11.27-16.99) L 03/13/24 22:39 Hct 33.8 % (37-53) L 03/13/24 22:39 MCV 95.8 fl (82-101) 03/13/24 22:39 MCH 29.2 pg (27-33) 03/13/24 22:39 MCHC 30.5 g/dL (30-55) 03/13/24 22:39 RDW 14.8 % (12.1-15.1) 03/13/24 22:39 Plt Count 179 10^3/cmm (157-399) 03/13/24 22:39 MPV 10.7 fL (7.4-10.4) H 03/13/24 22:39 Neut % (Auto) 86.6 % 03/13/24 22:39 Lymph % (Auto) 4.2 % 03/13/24 22:39 [place] % (Auto) 8.3 % 03/13/24 22:39 Eos % (Auto) 0.1 % 03/13/24 22:39 Baso % (Auto) 0.2 % 03/13/24 22:39 Neut # (Auto) 15.65 10^3/uL (1.8-7.7) H 03/13/24 22:39 Lymph # (Auto) 0.8 10^3/uL (0.8-4.8) 03/13/24 22:39 [place] # (Auto) 1.5 10^3/uL (0.2-0.9) H 03/13/24 22:39 Eos # (Auto) 0.0 10^3/uL (0.0-0.8) 03/13/24 22:39 Baso # (Auto) 0.0 10^3/uL (0.0-0.1) 03/13/24 22:39 Nucleated RBC % (auto) 0 % 03/13/24 22:39 Nucleated RBCs # 0.0 /100WBC 03/13/24 22:39 Sodium 141 mmol/L (136-145) 03/13/24 22:39 Potassium 4.3 mmol/L (3.5-5.1) 03/13/24 22:39 Chloride 101 mmol/L (98-107) 03/13/24 22:39 Carbon Dioxide 30 mmol/L (22-29) H 03/13/24 22:39 Anion Gap 14.3 (5-19) 03/13/24 22:39 BUN 19 mg/dL (8-23) 03/13/24 22:39 Creatinine 1.0 mg/dL (0.7-1.2) 03/13/24 22:39 GFR Calculation Not Reportable 03/13/24 22:39 Glucose 110 mg/dL (65-115) 03/13/24 22:39 Calculated Osmolality 295 mOsm/kg (285-295) 03/13/24 22:39 Calcium 8.7 mg/dL (8.5-10.5) 03/13/24 22:39 Total Bilirubin 0.4 mg/dL (0.15-1.2) 03/13/24 22:39 AST 26 U/L (0-40) 03/13/24 22:39 ALT 21 U/L (0-41) 03/13/24 22:39 Alkaline Phosphatase 63 U/L (40-130) 03/13/24 22:39 Total Protein 7.3 g/dL (6.6-8.7) 03/13/24 22:39 Albumin 3.7 g/dL (3.5-5.2) 03/13/24 22:39 Globulin 3.6 g/dL (1.3-4.6) 03/13/24 22:39 Urine Color Yellow (Yellow) 03/13/24 23:20 Urine Appearance Slightly cloudy (CLEAR) 03/13/24 23:20 Urine pH 6 (5-7) 03/13/24 23:20 Ur Specific [place] 1.010 (1.005-1.030) 03/13/24 23:20 Urine Protein Trace (Negative) 03/13/24 23:20 Urine Glucose (UA) Norm (Normal) 03/13/24 23:20 Urine Ketones 1+ (Negative) H 03/13/24 23:20 Urine Blood Neg (Negative) 03/13/24 23:20 Urine Nitrate Negative (Negative) 03/13/24 23:20 Urine Bilirubin 1+ (Negative) H 03/13/24 23:20 Urine Urobilinogen Norm mg/dL (Negative) 03/13/24 23:20 Ur Leukocyte Esterase 1+ (Negative) H 03/13/24 23:20 Urine RBC 0-4 /hpf (0-2) H 03/13/24 23:20 Urine WBC 5-10 /hpf (0-5) H 03/13/24 23:20 Ur Squamous Epith Cells 0-4 /hpf (0-5) H 03/13/24 23:20 Amorphous Sediment Not Reportable 03/13/24 23:20 Urine Bacteria Trace /hpf (NONE) 03/13/24 23:20 Urine Mucus 3+ /hpf 03/13/24 23:20 Adenovirus (PCR) Not detected (NOT DETECT) 03/13/24 22:33 C. pneumoniae DNA (PCR) Not detected (NOT DETECT) 03/13/24 22:33 Coronavirus 229E (PCR) Not detected (NOT DETECT) 03/13/24 22:33 Human Metapneumovir PCR Not detected (NOT DETECT) 03/13/24 22:33 Influenza A (H1) PCR Not detected (NOT DETECT) 03/13/24 22:33 Influ A (H1/09) PCR Not detected (NOT DETECT) 03/13/24 22:33 Influenza A (H3) PCR Not detected (NOT DETECT) 03/13/24 22:33 Influenza Type A (PCR) Not detected (NOT DETECT) 03/13/24 22:33 Influenza Type B (PCR) Not detected (NOT DETECT) 03/13/24 22:33 M. pneumoniae (PCR) Not detected (NOT DETECT) 03/13/24 22:33 Parainfluenza 1 (PCR) Not detected (NOT DETECT) 03/13/24 22:33 Parainfluenza 2 (PCR) Not detected (NOT DETECT) 03/13/24 22:33 Parainfluenza 3 (PCR) Not detected (NOT DETECT) 03/13/24 22:33 Parainfluenza 4 (PCR) Not detected (NOT DETECT) 03/13/24 22:33 RSV Type A (PCR) Not detected (NOT DETECT) 03/13/24 22:33 RSV Type B (PCR) Not detected (NOT DETECT) 03/13/24 22:33 Entero/Rhino (PCR) Not detected (NOT DETECT) 03/13/24 22:33 SARS-CoV-2 (PCR) Not detected (NOT DETECT) 03/13/24 22:33 All radiology interpretation(s) finalized by discharge Discharge Plan Discharge Patient Disposition: Home Clinical Impression: Shortness of breath Condition: Stable Prescriptions: No Action potassium chloride 20 mEq tablet extended release 20 meq PO DAILY PRN (Reason: with lasix) Qty: 90 3RF benzonatate 100 mg capsule 100 mg PO DAILY PRN (Reason: Cough) doxycycline hyclate 100 mg capsule 100 mg PO DAILY PRN (Reason: Congestion) Yupelri 175 mcg/3 mL solution for nebulization 175 mcg INHALATION DAILY Daliresp 250 mcg tablet 250 mcg PO DAILY ascorbic acid (vitamin C) 500 mg capsule 500 mg PO DAILY levothyroxine 100 mcg capsule 50 mcg PO DAILY fluticasone propionate [Flonase Allergy Relief] 50 mcg/actuation spray,suspension 1 spray INTRANASAL DAILY prednisone 10 mg tablet 7.5 mg PO DAILY PRN cholecalciferol (vitamin D3) 50 mcg (2,000 unit) capsule 50 mcg PO DAILY zinc gluconate 50 mg tablet 50 mg PO DAILY lovastatin 40 mg tablet 20 mg PO DAILY montelukast 10 mg tablet 10 mg PO DAILY budesonide 0.5 mg/2 mL suspension for nebulization 0.25 mg inhalation BID tamsulosin 0.4 mg capsule 0.4 mg PO DAILY formoterol fumarate 20 mcg/2 mL solution for nebulization 2 ml inhalation Q12H finasteride 5 mg tablet 5 mg PO DAILY Qty: 90 3RF silodosin 8 mg capsule 8 mg PO DAILY Qty: 90 3RF Rx Instructions: must administer with a meal/food clonazepam 1 mg tablet 1 mg PO Q8H Qty: 90 5RF gabapentin 400 mg capsule 400 mg PO QID 90 Days Qty: 360 3RF Rx Instructions: 1 in am, 1 noon 2 in pm furosemide 40 mg tablet 20 mg PO DAILY PRN (Reason: edema) Discharge Orders: Discharge ED (Routine); Ordered 03/14/24 Ordered By: Gordo Tavares Patient Instructions: Shortness of Breath (ED) Activity Restrictions/Additional Instructions: Thank you for choosing [facility] for your healthcare needs today. Please realize that you were seen in the emergency department and that we are providing you with an emergency medical screening exam and this may not be a complete and all exclusive of all testing and/or medical workup we may need to determine your element or severity of your illness. It is very important that you follow-up as instructed with your primary care provider or specialist for the additional evaluation and to discuss your medical treatment plan. You may return to the emergency department should you have concerns or if your condition changes or worsens in any way. Coding Level of Care Code ED Licensed Prosthetist for Yossi Perez
[2024-03-13 23:01] LABS: Basophils % 0.2 %; Eosinophils % 0.1 %; Hematocrit 33.8 % (37-53); Lymphocytes # 0.8 10^3/uL (0.8-4.8); Lymphocytes % 4.2 %; Mean Corpuscular HGB Conc 30.5 g/dL (30-55); Mean Corpuscular Hemoglobin 29.2 pg (27-33); Mean Corpuscular Volume 95.8 fl (82-101); Mean Platelet Volume 10.7 fL (7.4-10.4); Monocytes # 1.5 10^3/uL (0.2-0.9); Monocytes % 8.3 %; Neutrophils # 15.65 10^3/uL (1.8-7.7); Neutrophils % 86.6 %; Nucleated Red Blood Cells % 0 %; Platelet Count 179 10^3/cmm (157-399); Red Blood Count 3.53 10^6/uL (3.85-5.65); Red Cell Distribution Width 14.8 % (12.1-15.1); White Blood Count 18.07 10^3/uL (3.29-11.43)
[2024-03-13 23:22] LABS: Alanine Aminotransferase 21 U/L (0-41); Albumin Level 3.7 g/dL (3.5-5.2); Alkaline Phosphatase 63 U/L (40-130); Anion Gap 14.3 (5-19); Aspartate Amino Transferase 26 U/L (0-40); Blood Urea Nitrogen 19 mg/dL (8-23); Calcium 8.7 mg/dL (8.5-10.5); Carbon Dioxide 30 mmol/L (22-29); Chloride 101 mmol/L (98-107); Creatinine Clr Calc Pharmacy 52.3684; Globulin 3.6 g/dL (1.3-4.6); Glucose 110 mg/dL (65-115); Osmolality Calculated 295 mOsm/kg (285-295); Potassium 4.3 mmol/L (3.5-5.1); Sodium 141 mmol/L (136-145); Total Bilirubin 0.4 mg/dL (0.15-1.2); Total Protein 7.3 g/dL (6.6-8.7)
[2024-03-13 23:33] VITALS: BP 99/50; PULSE 91; O2SAT 93
--- NOTE | 2024-03-13 23:46 | ECG_ITS ---
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 Measurements Intervals [place] Rate: 102 P: 68 CT: 154 QRS: 87 QRSD: 81 T: 72 QT: 337 QTc: 440 Interpretive Statements SINUS TACHYCARDIA WITH FREQUENT ECTOPIC PREMATURE COMPLEXES Compared to ECG 02/17/2023 09:03:32 Sinus rhythm no longer present Electronically Signed On 03-14-2024 6:49:47 CDT by Joey Pillai M.D. [id number]
[2024-03-13 23:56] LABS: Urine Appearance Slightly Cloudy (CLEAR); Urine Color Yellow (Yellow); pH Urine 6 (5-7)
[2024-03-13 23:57] LABS: Add Urine Microscopic? YES; Bacteria Urine TRACE /hpf; Bilirubin Urine 1+ (Negative); Blood Urine Neg (Negative); Glucose Urine UA Norm (Normal); Ketones Urine 1+ (Negative); Leukocyte Esterase Urine 1+ (Negative); Mucus Urine 3+ /hpf; Nitrate Urine Negative (Negative); Protein Urine Trace (Negative); RBC Urine 0-4 /hpf (0-2); Squamous Epithelial Cell Urine 0-4 /hpf (0-5); Urobilinogen Urine Norm (Negative)
[2024-03-13 23:58] LABS: Add Urine Culture? No
[2024-03-14] VITALS: BP 96/54; PULSE 82; RESP 16; O2SAT 95
[2024-03-14 00:28] LABS: Adenovirus Not Detected (NOT DETECT); Chlamydia Pneumoniae Not Detected (NOT DETECT); Coronavirus 229E,HKU1,NL63,OC4 Not Detected (NOT DETECT); Human Metapneumovirus Not Detected (NOT DETECT); Human Rhinovirus/Enterovirus Not Detected (NOT DETECT); Influenza A Not Detected (NOT DETECT); Influenza A H1 Not Detected (NOT DETECT); Influenza A H1-2009 Not Detected (NOT DETECT); Influenza A H3 Not Detected (NOT DETECT); Influenza B Not Detected (NOT DETECT); Mycoplasma Pneumoniae Not Detected (NOT DETECT); Parainfluenza Virus Type 1 Not Detected (NOT DETECT); Parainfluenza Virus Type 2 Not Detected (NOT DETECT); Parainfluenza Virus Type 3 Not Detected (NOT DETECT); Parainfluenza Virus Type 4 Not Detected (NOT DETECT); Respiratory Syncytial Virus A Not Detected (NOT DETECT); Respiratory Syncytial Virus B Not Detected (NOT DETECT); SARS-COV-2 Not Detected (NOT DETECT)
[2024-03-14 00:41] VITALS: BP 95/57; PULSE 89; RESP 22; O2SAT 91
== END 2024-03-14 00:48 | disposition home or self-care (01) ==
PROVIDERS: Emergency Provider Emergency Medicine
DX: R06.02 Shortness of breath (principal); Z11.52 Encounter for screening for COVID-19; G20.A1 Parkinson's disease without dyskinesia, without mention of fluctuations; E78.5 Hyperlipidemia, unspecified; I10 Essential (primary) hypertension; Z87.891 Personal history of nicotine dependence
CPT/HCPCS: 36415; 71045; 80053; 81001; 85025; 87486; 87581; 87633; 93005; 99285

== ENCOUNTER → 2024-03-25 14:30 | Outpatient (BNVA) | payer OTHER, SELFPAY | PROVIDERS: Visit Provider Internal Medicine Cardiovascular Disease | DX: R00.0 Tachycardia, unspecified (principal); I10 Essential (primary) hypertension; G25.0 Essential tremor; J44.9 Chronic obstructive pulmonary disease, unspecified; Z87.891 Personal history of nicotine dependence; G20.A1 Parkinson's disease without dyskinesia, without mention of fluctuations | CPT/HCPCS: 99213 ==